=== PATIENT | female | born 1975 | race Caucasian/White ===

== ENCOUNTER 2021-01-29 08:00 | Outpatient (CLI) | payer MEDICAID ==
--- NOTE | 2021-01-29 11:51 | XRAY Report ---
PROCEDURE: Knee 3 View LT INDICATIONS: CHRONIC LEFT KNEE PAIN TECHNIQUE: 3 views of the left knee(s) were acquired. COMPARISON: None. FINDINGS: BONES: No acute, displaced fracture or dislocation. SOFT TISSUES: No focal abnormality. IMPRESSION: 1.No acute osseous abnormality. Reviewed by: Kumar Hernández MD on 01/29/2021 11:50 AM PDT Approved by: Kumar Hernández MD on 01/29/2021 11:50 AM PDT Station ID: [id number]
== END 2021-01-29 23:59 | disposition home or self-care (01) ==
LOC: DI.S 08:00
PROVIDERS: ATTEND Family Medicine
DX: M25.562 Pain in left knee (principal); G89.29 Other chronic pain